=== PATIENT | female | born 1990 | race Caucasian/White ===

== ENCOUNTER 2019-01-01 10:11 | Day surgery (SDC) | payer OTHER ==
[2018-12-31 14:17] VITALS: BMI 29.4
[2019-01-01] VITALS (16 sets, daily range): BP systolic 105–140; BP diastolic 55–76; PULSE 65–88; RESP 12–22; Ht 154.9 cm; Wt 96.1 kg
[~2019-01-01] VITALS: Ht 154.9 cm; Wt 96.1 kg
[~2019-01-01 10:11] MED LIST: CEFAZOLIN 2 GM/50 ML (PMX) 50 ML (FOR WT < 120 KG) IVPB ONE; LACTATED RINGER'S 1,000 ML IV SCH; PRENAT PO; SOD CHLORIDE 0.9% 1,000 ML IV SCH
[2019-01-01] MEDS ORDERED: BUPIVACAINE 0.5%/EPI (SDV) 30 ML INJ ONE (10:43)
[2019-01-01] MEDS ORDERED: CEFAZOLIN 1 GM INJ ONE (10:46)
[2019-01-01] MEDS ORDERED: FENTAnyl 50 MCG/ML VIAL ONE (10:46)
[2019-01-01] MEDS ORDERED: LIDOCAINE 2% (SDV) 5 ML INJ ONE (10:46)
[2019-01-01] MEDS ORDERED: PROPOFOL 20 ML ONE (10:46)
[2019-01-01] MEDS ORDERED: MIDAZOLAM 1 MG/ML 2 ML INJ ONE (10:46)
[2019-01-01] MEDS ORDERED: ROCURONIUM 50 MG INJ ONE ×2 (10:46→12:56)
--- NOTE | 2019-01-01 11:38 | PREAC ---
Date/Time of Note Date/Time of Note DATE: 01/01/19 TIME: 11:35 Anesthesia Eval and Record Evaluation Time Pre-Procedure Interview DATE: 01/01/19 TIME: 11:35 Age 28 Sex female NPO: 8 hrs Preoperative diagnosis desire for permanent sterilization Planned procedure mini lap BTL Past Medical History Past Medical History: Includes GI: Obesity (BMI 29.3) Surgery & Anesthesia Issues No known issue Meds Anticoagulation: No Beta Joon within 24 hr: No Reason Beta Joon not given: Pt. not on B-Joon Discontinued Reported Medications Multivit/Min/Fol Ac/Iron/Pren* ( S*) 1 Tab Tab, 1 TAB PO DAILY, TAB 07/11/14 Current Medications Lactated Ringer's 1,000 ml @ 25 mls/hr Q24H IV ; Start 01/01/19 at 07:00 Sodium Chloride 1,000 ml @ 25 mls/hr Q24H IV ; Start 01/01/19 at 07:00 Meds reviewed: Yes Allergies Coded Allergies: No Known Allergy (Unverified , 01/01/19) Allergies Reviewed: Yes Labs/Studies Labs Reviewed: Reviewed by anesthesiologist (pending but Dr Gregory OK to start ) test: Negative Pre-procedure Exam Last vitals Vital Signs Date Temp Pulse Resp B/P (MAP) Pulse Ox O2 O2 Flow FiO2 Time Delivery Rate 01/01/19 98.7 75 18 140/71 100 11:21 (94) Airway: Adequate mouth opening, Adequate thyromental dist Mallampati: Mallampati II Teeth: Normal Lung: Normal Heart: Normal ASA Physical Status ASA physical status: 2 Emergency: None Planned Anesthetic General/MAC: ETT Planned Pain Management Parenteral pain med Pre-operative Attestations Prior to commencing anesthesia and surgery, the patient was re-evaluated, there was verification of: *The patient's identity *The results of appropriate recent lab work and preoperative vital signs *The above evaluation not changing prior to induction *Anesthetic plan, risk benefits, alternative and complications discussed with patient/family; questions answered; patient/family understands, accepts and wishes to proceed. GABRIEL SALAMANCA Jan 01, 2019 11:38
[2019-01-01] MEDS ORDERED: ONDANSETRON 4 MG INJ ONE (11:46)
[2019-01-01] MEDS ORDERED: ROPIVACAINE 0.5 % 30 ML VIAL ONE ×2 (11:46→13:32)
[2019-01-01] MEDS ORDERED: METOCLOPRAMIDE 10 MG INJ ONE (11:47)
[2019-01-01] MEDS ORDERED: ONDANSETRON 4 MG INJ IV PRN ×2 (12:00→14:30)
[2019-01-01] MEDS ORDERED: HYDROmorphONE 1 MG/5 ML IV SYRINGE IV PRN ×3 (12:00)
[2019-01-01] MEDS ORDERED: MEPERIDINE 25 MG INJ IV PRN (12:00)
[2019-01-01] MEDS ORDERED: OXYCODONE/ACETAMINOPHEN (5/325) TAB PO PRN ×2 (12:00)
[2019-01-01] MEDS ORDERED: SUGAMMADEX SODIUM 200 MG/2 ML VIAL IV ONE (13:13)
--- NOTE | 2019-01-01 14:09 | SIPON ---
Date/Time of Note Date/Time of Note DATE: 01/01/19 TIME: 14:07 Operative Report Preoperative Diagnosis Voluntary sterilization Postoperative Diagnosis Same Operation/Procedure Performed Mini laparotomy BTL Surgeon Joey Martinez MD assistant front end manager ink technician Anesthesia: general Estimated blood loss: 10 - 50 ml's Transfusion Required none Specimen Fallopian tubes Grafts/Implants none Complications none JOEY MARTINEZ MD Jan 01, 2019 14:09
[2019-01-01] MEDS ORDERED: KETOROLAC 30 MG INJ IV PRN (14:30)
[2019-01-01] MEDS ORDERED: morphine 2 MG INJ IV PRN (14:30)
[2019-01-01] MEDS ORDERED: HYDROCODONE/APAP (5/325) TAB PO PRN ×2 (14:30)
--- NOTE | 2019-01-01 14:30 | PREOPHP ---
DATE OF ADMISSION: 01/01/2019 HISTORY OF PRESENT ILLNESS: A 28-year-old female 2, para 3 with history of 1 set of twins. Last menstrual period was 12/05/2018, admitted for voluntary sterilization. PAST MEDICAL HISTORY: Unremarkable. PAST SURGICAL HISTORY: section. ALLERGIES: NO KNOWN ALLERGIES. FAMILY HISTORY: Noncontributory. PHYSICAL EXAMINATION: VITAL SIGNS: The patient is afebrile. Vital signs stable. HEAD, NECK AND CHEST: Within normal limits. ABDOMEN: Soft, nontender, nondistended. PELVIC: Normal. EXTREMITIES: Within normal limits. NEUROLOGIC: Within normal limits. IMPRESSION: Voluntary sterilization. PLAN: Minilaparotomy, bilateral tubal ligation. Risks, benefits and options of procedure were expla ined to the patient. The patient has been counseled about all of her contraceptive options including all methods of sterilization. I explained to patient that with bilateral tubal ligation there is a chance of failure resulting in ectopic and/or intrauterine . After counseling, th e patient said she understood and gave informed consent for the procedure. Dictated By: JOEY ELLSWORTH/NTS Conf#: [id number] DID#: [id number]
--- NOTE | 2019-01-01 14:33 | OPR ---
DATE OF OPERATION: 01/01/2019 PREOPERATIVE DIAGNOSIS: Voluntary sterilization. POSTOPERATIVE DIAGNOSIS: Voluntary sterilization. OPERATION PERFORMED: Minilaparotomy, bilateral tubal ligation. SURGEON: Joey Gregory MD TELETYPESETTER MONITOR: electronic warfare technical. ANESTHESIA: General. ANESTHESIOLOGIST: Dr. Saenz. PROCEDURE: Patient was taken to the operating room and placed on the operating table in supine position. After adequate general anesthesia was given, the area was prepared and draped in usual sterile fashion. Using a scalpel, an incision was made about 2 fingerbreadths above the symphysis pubis. The incision was carried to fascia. The fascia was incised and extended bilaterally with Bovie. Two Amparo's were used to separate the fascia from the muscle. The muscle was dissected down to peritoneum. The peritoneum was secured with 2 Kellys and incised with Metzenbaum scissors. Opening the peritoneal cavity, the right fallopian tube was grasped with a Gilbert clamp, followed to its fimbrial end to confirm its identity. Using 0 plain suture ligature, a 5 cm segment of the right fallopian tube was doubly ligated. Using Metzenbaum scissors, a portion of the right fallopian tube above the ligated area was excised and sent to pathology. Same procedure was repeated on left fallopian tube. After hemostasis, the peritoneum was closed with 0 chromic continuous. The fascia was closed with 0 Vicryl continuous. Subcutaneous tissue was reapproximated with 2-0 plain. The skin was closed with heaven. ESTIMATED BLOOD LOSS: 20 mL. COUNTS: All counts were correct. Dictated By: JOEY ELLSWORTH/MELODIE Conf#: [id number] DID#: [id number] MTDDamián
--- NOTE | 2019-01-02 10:21 | PAC ---
Date/Time of Note Date/Time of Note DATE: 01/02/19 TIME: 10:21 Post-Anesthesia Notes Post-Anesthesia Note Last documented vital signs Vital Signs Date Temp Pulse Resp B/P (MAP) Pulse Ox O2 O2 Flow FiO2 Time Delivery Rate 01/01/19 97.6 70 18 105/57 97 Room Air 15:54 (73) Activity: WNL Respiratory function: WNL Cardiovascular function: WNL Mental status: Baseline Pain reasonably controlled: Yes Hydration appropriate: Yes Nausea/Vomiting absent: No DORA BARBOSA MD Jan 02, 2019 10:21
== END 2019-01-01 16:21 | disposition home or self-care (01) ==
LOC: SDS 10:11
PROVIDERS: ATTEND Obstetrics & Gynecology
DX: Z30.2 Encounter for sterilization (principal)
CPT/HCPCS: 58600; 85025; 86850; 86900; 86901; 88302; J0690; J1170; J2250; J2405; J2765; J2795; J3010; Z7512; Z7610

== ENCOUNTER 2019-01-05 20:23 | Emergency (ER) | payer OTHER ==
[~2019-01-05] VITALS: Wt 95.5 kg
--- NOTE | 2019-01-05 23:20 | ERD ---
ER Documentation Chief Complaint Chief Complaint DISCHARGE FROM 4 DAY OLD SURGICAL INCISION HPI This is a 28-year-old female presents to emerge department for evaluation of a discharge from her surgical site. Surgery was done 4 days ago. Dressing was removed today by nurse. LMP: Last month. . Not breast-feeding. Denies headache, head injury, loss of consciousness, dizziness, neck pain, neck stiffness, throat pain, difficulty swallowing, difficulty breathing lying flat, shoulder pain, chest pain, back pain, abdominal pain, nausea, vomiting, constipation, diarrhea, urinary symptoms, or possibility being , loss of bowel and bladder control, trauma, injury, falls, difficulty walking due to pain, numbness or tingling sensation, calf pain, recent travel, recent major surgery in the last 3 weeks, calf pain, recent long travel, recent exposure to any illness, recent antibiotic use in the last 3 months, fever, chills, seizures. Past medical history: Surgical history: Social: Denies smoking, use of alcoholic beverages, use of illegal drugs. ROS All systems reviewed and are negative except as per history of present illness. Medications Home Meds Active Scripts Acetaminophen* (Tylophen*) 500 Mg Capsule, 1 CAP PO Q6H PRN for PAIN AND OR ELEVATED TEMP, #20 CAP Prov:ZITA CONTRERAS 01/05/19 Allergies Allergies: Coded Allergies: No Known Allergy (Unverified , 01/01/19) PMhx/Soc History of Surgery: Yes (c-secton, right ankle surg) Anesthesia Reaction: No Hx Neurological Disorder: No Hx Respiratory Disorders: No Hx Cardiac Disorders: No Hx Psychiatric Problems: No Hx Miscellaneous Medical Probl: No Hx Alcohol Use: Yes (occasional states once every 3 months) Hx Substance Use: No Hx Tobacco Use: Yes (states she smokes once every 6 months) Physical Exam Vitals Physical Exam Const: No acute distress Head: Atraumatic Eyes: Normal Conjunctiva ENT: Normal External Ears, Nose and Mouth. Neck: Full range of motion. No meningismus. Resp: Clear to auscultation bilaterally Cardio: Regular rate and rhythm, no murmurs Abd: Soft, non tender, non distended. Normal bowel sounds. 13 heaven noted. No dehiscence. No bleeding. No discharge. No induration. No signs of abscess formation. No signs of deep space infection. Skin: No petechiae or rashes. Color appears normal for ethnicity. Back: No midline or flank tenderness Ext: No cyanosis, or edema Neur: Awake and alert. No neurological deficit. Psych: Normal Mood and Affect Procedures/MDM Diagnostic tests: Clinical exam. Treatment: Not applicable. Re-evaluation: Not applicable. Differential diagnosis I have low suspicion for sepsis, dehiscence, abscess formation, deep space infection, sepsis. Final diagnosis: Postoperative complication. Prescription: Tylenol. Follow-up with PCP in the next 24-48 hours. Follow-up with your surgeon in the next 24-48 hours. Come back here in the emergency department for any new symptoms or any worsening symptoms. All questions and concerns were answered. Patient and family members verbalized understanding and agreed with plan of care. Hemodynamically stable on discharge. Departure Diagnosis: Primary Impression: Postoperative complication Condition: Stable Additional Instructions: Follow-up with PCP in the next 24-48 hours. Follow-up with your surgeon in the next 4-48 hours. Come back here in the emergency department for any new symptoms or any worsening symptoms. ZITA CONTRERAS Jan 05, 2019 23:20
[2019-01-05] MEDS ORDERED: ACET500C5 PO (23:22)
[2019-01-05 23:38] VITALS: BP 120/82; PULSE 71; RESP 16
== END 2019-01-05 23:39 | disposition home or self-care (01) ==
LOC: FTE 20:23
DX: L76.82 Other postprocedural complications of skin and subcutaneous tissue (principal); Z87.891 Personal history of nicotine dependence
CPT/HCPCS: 99282